=== PATIENT | female | born 1945 | race Asian ===

== ENCOUNTER 2017-06-19 11:19 | Emergency (ER) | payer OTHER ==
[~2017-06-19] VITALS: Ht 165.1 cm; Wt 81.6 kg
[2017-06-19 11:19] VITALS: BP_SYST 194
[~2017-06-19 11:19] MED LIST: INSU100C5
--- NOTE | 2017-06-19 11:19 | NUR ---
Pt BIB ALS, placed to ER bed 02, to threat monitoring analyst. Pt sat on [place] floor, then layed down. BS 52 on scene with ALOC. Glucagon 1 amp and D10 250 mL given per EMS. Upon arrival to ER, pt AAOx3, even and non-labored respirations, SPO2 98. Pt ambulatory to restroom with steady gait. NAD.
[2017-06-19] MEDS ORDERED: ASPIRIN 325 MG TABLET PO ONE (11:30)
[2017-06-19 11:42] LABS: BASOPHILS # (AUTO) 0.1 K/uL (0.0-0.2); BASOPHILS % (AUTO) 0.7 % (0.0-2.0); EOSINOPHILS # (AUTO) 0.1 K/uL (0.0-0.4); EOSINOPHILS % (AUTO) 0.8 % (0.0-4.0); HEMATOCRIT 41.9 % (36-48); HEMOGLOBIN 13.9 g/dL (12.0-16.0); LYMPHOCYTES # (AUTO) 0.7 K/uL (1.0-5.5); LYMPHOCYTES % (AUTO) 6.1 % (20.5-51.5); MEAN CORPUSCULAR HEMOGLOBIN 30 pg (27-31); MEAN CORPUSCULAR HGB CONC 33 % (32-36); MEAN CORPUSCULAR VOLUME 91 fL (79.0-98.0); MONOCYTES # (AUTO) 0.3 K/uL (0.0-1.0); MONOCYTES % (AUTO) 2.7 % (1.7-9.3); NEUTROPHILS # (AUTO) 9.8 K/uL (1.8-7.7); NEUTROPHILS % (AUTO) 89.7 % (40.0-70.0); PLATELET COUNT (AUTO) 210 K/uL (130-430); RED BLOOD CELL COUNT(AUTO) 4.58 MIL/uL (4.2-6.2); WHITE BLOOD COUNT (AUTO) 10.9 K/uL (4.8-10.8)
--- NOTE | 2017-06-19 11:42 | NUR ---
Off unit to radiology
[2017-06-19 11:45] LABS: BILIRUBIN,URINE NEGATIVE (NEGATIVE); BLOOD, URINE 2+ (NEGATIVE); CLARITY/URINE CLEAR (CLEAR); COLOR,URINE YELLOW (YELLOW); GLUCOSE,URINE 1+ (NEGATIVE); KETONES,URINE NEGATIVE (NEGATIVE); LEUKOCYTE ESTERASE ,URINE TRACE (NEGATIVE); NITRITE, URINE POSITIVE (NEGATIVE); PROTEIN URINE TRACE (NEGATIVE); UROBILINOGEN,URINE 0.2 (0.2-1.0)
--- NOTE | 2017-06-19 11:50 | NUR ---
Dr. Stauffer at bedside examining patient. Recieved new orders.
[2017-06-19 11:54] LABS: ANION GAP 7 (5-15); CALCIUM 9.1 mg/dL (8.4-11.0); CHLORIDE 102 mmol/L (98-107); CREATININE 1.33 mg/dL (0.55-1.30); GLUCOSE 233 mg/dL (70-99); POTASSIUM 3.8 mmol/L (3.5-5.1); SODIUM SERUM 139 mmol/L (136-145); UREA NITROGEN, BLOOD 25 mg/dL (8-21)
[2017-06-19 11:56] LABS: BACTERIA,URINE MODERATE /HPF (None Seen); MUCUS,URINE 1+ /LPF (None Seen); RBC,URINE 0-3 /HPF (0-3)
[2017-06-19 11:57] LABS: BARBITURATE, URINE NEGATIVE (NEG <=200); BENZODIAZEPINE, URINE NEGATIVE (NEG <=150); CANNABINOID, URINE NEGATIVE (NEG <=50); COCAINE, URINE NEGATIVE (NEG <=150); METHAMPHETAMINES SCREEN,URINE NEGATIVE (NEG <=500); OPIATE, URINE NEGATIVE (NEG <=100); PHENCYCLIDINE SCREEN,URINE NEGATIVE (NEG <=25); UR TRICYCLIC ANTIDEPRESSANTS NEGATIVE (NEG <=300); URINE AMPHETAMINE NEGATIVE (NEG <=500); URINE METHADONE NEGATIVE (NEG <=200); URINE OXYCODONE SCREEN NEGATIVE (NEG <=100); URINE PROPOXYPHENE SCREEN NEGATIVE (NEG <=300)
[2017-06-19 11:58] LABS: PROTHROMBIN TIME 10.4 SECS (9.5-12.5)
--- NOTE | 2017-06-19 12:00 | NUR ---
Patient returned from radiology, tolerated well. No signs of distress, vss noted.
[2017-06-19 12:08] LABS: ALANINE AMINOTRANSFERASE 43 U/L (12-78); ASPARTATE AMINOTRANSFERASE 44 U/L (10-37); CREATINE KINASE, TOTAL 430 U/L (26-192); TOTAL BILIRUBIN 0.4 mg/dL (0.0-1.0); TOTAL PROTEIN, SERUM 8.2 g/dL (6.4-8.3)
[2017-06-19 12:11] LABS: ALCOHOL, BLOOD < 3 mg/dL (<10)
[2017-06-19] MEDS ORDERED: NPH,100V SUBCUT (12:16)
[2017-06-19] MEDS ORDERED: ATOR20TA64 PO (12:16)
[2017-06-19] MEDS ORDERED: LISI-600 PO (12:16)
[2017-06-19] MEDS ORDERED: REPA1TAB3 PO (12:16)
[2017-06-19] MEDS ORDERED: GLIM4TAB PO (12:16)
[2017-06-19 12:17] LABS: ACETAMINOPHEN < 1 ug/mL (1-30); SALICYLATE 1 mg/dL (3-30)
[2017-06-19 12:18] LABS: CKMB RELATIVE INDEX 1.3 (0.0-2.9); CREATINE KINASE MB 5.5 ng/mL (0-3.6)
--- NOTE | 2017-06-19 13:10 | NUR ---
Patient sitting upright in bed, eating diabetic meal. Daughter at bedside.
[2017-06-19] MEDS ORDERED: cefTRIAXone 1 GM in D5W 50 ML IV ONE (15:00)
[2017-06-19 15:10] VITALS: BP_SYST 152
--- NOTE | 2017-06-19 15:10 | NUR ---
Patient given written and verbal discharge instructions and verbalizes understanding. ER MD discussed with patient the results and treatment provided. Patient in stable condition. ID arm band removed. IV catheter removed intact and dressing applied, no active bleeding. Rx of Keflex given. Patient educated on pain management and to follow up with PMD. Pain Scale 0/10. Opportunity for questions provided and answered.
--- NOTE | 2017-06-21 16:03 | NUR ---
Final C & S report was reviewed by Dr. Almanza, new Rx of Cipro 500mg PO BID x 5 days was called into [facility] on [address] as requested by Daughter Megan. Daughter also verbalized that she had not started the previously prescribed antiobiotics, I counseled her on the need to start the antibiotics today that the patient would not deteriorate.
== END 2017-06-19 15:10 | disposition home or self-care (01) ==
LOC: SED 11:19
DX: E11.649 Type 2 diabetes mellitus with hypoglycemia without coma (principal); R40.4 Transient alteration of awareness; I10 Essential (primary) hypertension; N39.0 Urinary tract infection, site not specified; Z79.4 Long term (current) use of insulin
CPT/HCPCS: 36415; 70450; 71010; 80053; 80307; 81000; 82550; 82553; 82962; 84484; 85025; 85610; 85730; 87086; 93005; 99285; G0480; G0481; G0482; 87186-TC

== ENCOUNTER 2017-12-26 04:39 | Emergency (ER) | payer OTHER ==
[~2017-12-26] VITALS: Ht 165.1 cm; Wt 81.6 kg
[2017-12-26 04:39] VITALS: BP_SYST 209
[~2017-12-26 04:39] MED LIST changes: +ATOR20TA64 PO; +GLIM4TAB PO; -INSU100C5; +LISI-600 PO; +NPH,100V SUBCUT; +REPA1TAB3 PO
--- NOTE | 2017-12-26 04:45 | NUR ---
Patient to ER bed 1 to gown for evaluation. Side rails up. Report given to Flakito DE LEON.
--- NOTE | 2017-12-26 04:46 | NUR ---
Pt brought in by ambulance with a complaint of Low blood sugar of 33, was found in bed unresponsive by son. Also stated that she hasnt been eating very well recently. Has history of DM. No acute distress at this time. Will continue to monitor Pt.
--- NOTE | 2017-12-26 04:50 | NUR ---
Given sandwich and orange juice. Pt upright and eating food.
--- NOTE | 2017-12-26 05:01 | NUR ---
ED MD Arellano at bedside for medical evaluation.
--- NOTE | 2017-12-26 05:40 | NUR ---
Medication reconciliation completed with information provided by family. Any prior medication reconciliation on file was reviewed and corrected.
[2017-12-26 05:43] LABS: BASOPHILS # (AUTO) 0.1 K/uL (0.0-0.2); BASOPHILS % (AUTO) 0.7 % (0.0-2.0); EOSINOPHILS # (AUTO) 0.5 K/uL (0.0-0.4); EOSINOPHILS % (AUTO) 5.6 % (0.0-4.0); HEMATOCRIT 43.1 % (36-48); LYMPHOCYTES # (AUTO) 1.5 K/uL (1.0-5.5); MEAN CORPUSCULAR HEMOGLOBIN 30 pg (27-31); MEAN CORPUSCULAR HGB CONC 33 % (32-36); MEAN CORPUSCULAR VOLUME 91 fL (79.0-98.0); MONOCYTES # (AUTO) 0.5 K/uL (0.0-1.0); MONOCYTES % (AUTO) 5.4 % (1.7-9.3); NEUTROPHILS # (AUTO) 6.5 K/uL (1.8-7.7); NEUTROPHILS % (AUTO) 71.3 % (40.0-70.0); PLATELET COUNT (AUTO) 211 K/uL (130-430); RED BLOOD CELL COUNT(AUTO) 4.75 MIL/uL (4.2-6.2); RED CELL DISTRIBUTION WIDTH 11.5 % (9.0-15.0); WHITE BLOOD COUNT (AUTO) 9.1 K/uL (4.8-10.8)
[2017-12-26 05:49] LABS: CLARITY/URINE CLOUDY (CLEAR); COLOR,URINE YELLOW (YELLOW); PH,URINE 6.5 (5.0-8.0)
[2017-12-26 05:50] LABS: BILIRUBIN,URINE NEGATIVE (NEGATIVE); BLOOD, URINE 1+ (NEGATIVE); GLUCOSE,URINE NEGATIVE (NEGATIVE); KETONES,URINE NEGATIVE (NEGATIVE); LEUKOCYTE ESTERASE ,URINE NEGATIVE (NEGATIVE); NITRITE, URINE NEGATIVE (NEGATIVE); PROTEIN URINE 1+ (NEGATIVE); UROBILINOGEN,URINE 0.2 (0.2-1.0)
[2017-12-26 05:52] LABS: ANION GAP 4 (5-15); CALCIUM 10.2 mg/dL (8.4-11.0); CHLORIDE 108 mmol/L (98-107); CREATININE 1.22 mg/dL (0.55-1.30); GLUCOSE 80 mg/dL (70-99); POTASSIUM 3.7 mmol/L (3.5-5.1); SODIUM SERUM 140 mmol/L (136-145); UREA NITROGEN, BLOOD 31 mg/dL (8-21)
[2017-12-26 05:54] LABS: BACTERIA,URINE MANY /HPF (None Seen); MUCUS,URINE None Seen /LPF (None Seen); RBC,URINE 0-3 /HPF (0-3)
[2017-12-26 05:57] LABS: ALANINE AMINOTRANSFERASE 44 U/L (12-78); ALBUMIN 4.2 g/dL (3.4-4.8); ASPARTATE AMINOTRANSFERASE 43 U/L (10-37); TOTAL BILIRUBIN 0.3 mg/dL (0.0-1.0)
[2017-12-26] MEDS ORDERED: NACL 0.9% 1,000 ML IV ONE (06:15)
[2017-12-26] MEDS ORDERED: NITROFURANTOIN MONOHYD/M-CRYST 100 MG CAPSULE PO ONE (06:45)
--- NOTE | 2017-12-26 07:22 | NUR ---
Pt resting comfortably in hospital bed. No acute distress. Will continue to monitor.
[2017-12-26 08:06] VITALS: BP_SYST 132
--- NOTE | 2017-12-26 08:06 | NUR ---
Patient given written and verbal discharge instructions and verbalizes understanding. ER MD discussed with patient the results and treatment provided. Patient in stable condition. ID arm band removed. IV catheter removed intact and dressing applied, no active bleeding. Rx of Macrobid given. Patient educated on pain management and to follow up with PMD. Pain Scale 0. Opportunity for questions provided and answered.
== END 2017-12-26 08:06 | disposition home or self-care (01) ==
LOC: SED 04:39
DX: T38.3X1A Poisoning by insulin and oral hypoglycemic [antidiabetic] drugs, accidental (unintentional), initial encounter (principal); E09.649 Drug or chemical induced diabetes mellitus with hypoglycemia without coma; R41.82 Altered mental status, unspecified; N39.0 Urinary tract infection, site not specified; E86.0 Dehydration; I10 Essential (primary) hypertension; Z79.4 Long term (current) use of insulin; Y92.89 Other specified places as the place of occurrence of the external cause
CPT/HCPCS: 36415; 80053; 81000; 82962; 85025; 87086; 87186; 93005; 96360; 99285; J7030

== ENCOUNTER 2018-08-03 19:10 | Inpatient (IN) | payer OTHER ==
[~2018-08-03] VITALS: Ht 157.5 cm; Wt 72.6 kg
[2018-08-03 19:10] VITALS: BP_SYST 90
[~2018-08-03 19:10] MED LIST changes: -ATOR20TA64 PO; +cefTRIAXone 1 GM in D5W 50 ML IV SCH
[2018-08-03] MEDS ORDERED: NACL 0.9% 1,000 ML IV ONE ×4 (19:30→22:00)
[2018-08-03 20:02] LABS: BILIRUBIN,URINE NEGATIVE (NEGATIVE); BLOOD, URINE 1+ (NEGATIVE); CLARITY/URINE CLOUDY (CLEAR); COLOR,URINE YELLOW (YELLOW); GLUCOSE,URINE 3+ (NEGATIVE); KETONES,URINE 1+ (NEGATIVE); LEUKOCYTE ESTERASE ,URINE 1+ (NEGATIVE); NITRITE, URINE NEGATIVE (NEGATIVE); PH,URINE 5.5 (5.0-8.0); PROTEIN URINE TRACE (NEGATIVE); UROBILINOGEN,URINE 0.2 (0.2-1.0)
[2018-08-03] MEDS ORDERED: INSULIN REGULAR, HUMAN 10 UNITS/0.1 ML INJ IVP ONE (20:15)
[2018-08-03 20:29] LABS: BACTERIA,URINE MODERATE /HPF (None Seen); MUCUS,URINE 1+ /LPF (None Seen); RBC,URINE 20-50 /HPF (0-3); WBC,URINE 50-80 /HPF (0-3); YEAST,URINE Few /HPF (None Seen)
[2018-08-03 20:56] LABS: HEMATOCRIT 34.2 % (36-48); HEMOGLOBIN 10.5 g/dL (12.0-16.0); MEAN CORPUSCULAR HEMOGLOBIN 31 pg (27-31); MEAN CORPUSCULAR VOLUME 101 fL (79.0-98.0); RED BLOOD CELL COUNT(AUTO) 3.38 MIL/uL (4.2-6.2); WHITE BLOOD COUNT (AUTO) 11.4 K/uL (4.8-10.8)
[2018-08-03 20:57] LABS: MEAN CORPUSCULAR HGB CONC 31 % (32-36); PLATELET COUNT (AUTO) 220 K/uL (130-430); RED CELL DISTRIBUTION WIDTH 14.7 % (9.0-15.0)
[2018-08-03 21:15] LABS: BASOPHILS % (AUTO) 0.4 % (0.0-2.0); EOSINOPHILS % (AUTO) 0.3 % (0.0-4.0); LYMPHOCYTES % (AUTO) 5.1 % (20.5-51.5); MONOCYTES % (AUTO) 5.7 % (1.7-9.3); NEUTROPHILS # (AUTO) 10.1 K/uL (1.8-7.7); NEUTROPHILS % (AUTO) 88.5 % (40.0-70.0)
[2018-08-03] MEDS ORDERED: cefTRIAXone 1 GM IVPB PREMIX 50 ML IV ONE (21:15)
[2018-08-03 21:16] LABS: LYMPHOCYTES # (AUTO) 0.6 K/uL (1.0-5.5); MONOCYTES # (AUTO) 0.7 K/uL (0.0-1.0)
[2018-08-03] MEDS ORDERED: GLIM4TAB PO (21:23)
[2018-08-03] MEDS ORDERED: LIP20 PO (21:23)
[2018-08-03 21:32] LABS: ANION GAP 30 (5-15); CALCIUM 8.8 mg/dL (8.4-11.0); CHLORIDE 97 mmol/L (98-107); CREATININE 3.73 mg/dL (0.55-1.30); SODIUM SERUM 133 mmol/L (136-145); UREA NITROGEN, BLOOD 63 mg/dL (8-21)
[2018-08-03 21:35] LABS: ALANINE AMINOTRANSFERASE 32 U/L (12-78); ALBUMIN 3.3 g/dL (3.4-4.8); ASPARTATE AMINOTRANSFERASE 30 U/L (10-37); TOTAL BILIRUBIN 0.7 mg/dL (0.0-1.0)
[2018-08-03] MEDS: NACL 0.9% 1,000 ML IV SCH (22:00)
[2018-08-03] MEDS ORDERED: INSULIN REGULAR, HUMAN 100 UNITS in NS 99 ML IV ONE ×2 (22:00)
[2018-08-03 22:19] LABS: GLUCOSE 1212 mg/dL (70-99)
[2018-08-03 22:20] LABS: POTASSIUM 6.8 mmol/L (3.5-5.1)
[2018-08-03 22:50] VITALS: BP_SYST 100
[2018-08-03 23:12] LABS: ANION GAP 29 (5-15); CHLORIDE 103 mmol/L (98-107); CREATININE 3.81 mg/dL (0.55-1.30); POTASSIUM 5.5 mmol/L (3.5-5.1); SODIUM SERUM 138 mmol/L (136-145); UREA NITROGEN, BLOOD 63 mg/dL (8-21)
[2018-08-03 23:15] LABS: GLUCOSE 999 mg/dL (70-99)
[2018-08-03] MEDS ORDERED: ACETAMINOPHEN 325 MG TABLET PO PRN ×2 (23:15)
[2018-08-03] MEDS ORDERED: INSULIN REGULAR, HUMAN 100 UNITS in NS 99 ML IV PRN ×2 (23:15)
[2018-08-03] MEDS ORDERED: ACETAMINOPHEN 650 MG SUPP.RECT RC PRN (23:15)
[2018-08-03] MEDS ORDERED: LEVOFLOXACIN 500 MG/D5W 100 ML IV ONE ×2 (23:15→23:55)
[2018-08-03] MEDS ORDERED: ENOXAPARIN SODIUM 30 MG/0.3 ML SYRINGE SUBCUT ONE (23:45)
[2018-08-03 23:52] LABS: PROTHROMBIN TIME 9.9 SECS (9.5-12.5)
[2018-08-04] VITALS (17 sets, daily range): BP systolic 106–158
[2018-08-04] MEDS ORDERED: SODIUM BICARBONATE 8.4% JECT 50 MEQ/50 ML SYRINGE ONE (00:23)
[2018-08-04] MEDS ORDERED: SODIUM BICARBONATE 8.4% JECT 50 MEQ/50 ML SYRINGE IVP ONE ×2 (00:30→00:45)
[2018-08-04] MEDS: NACL 0.9% 1,000 ML IV SCH ×5 (00:35→09:03)
[2018-08-04] MEDS ORDERED: INSULIN REGULAR, HUMAN 100 UNITS in NS 99 ML IV PRN ×4 (03:00→08:00)
[2018-08-04 06:40] LABS: HEMATOCRIT 32.1 % (36-48); HEMOGLOBIN 10.7 g/dL (12.0-16.0); LYMPHOCYTES # (AUTO) 1.1 K/uL (1.0-5.5); LYMPHOCYTES % (AUTO) 9.6 % (20.5-51.5); MEAN CORPUSCULAR HEMOGLOBIN 30 pg (27-31); MEAN CORPUSCULAR HGB CONC 33 % (32-36); MONOCYTES # (AUTO) 0.7 K/uL (0.0-1.0); MONOCYTES % (AUTO) 6.1 % (1.7-9.3); NEUTROPHILS # (AUTO) 9.9 K/uL (1.8-7.7); NEUTROPHILS % (AUTO) 84.3 % (40.0-70.0); PLATELET COUNT (AUTO) 198 K/uL (130-430); PROTHROMBIN TIME 10.4 SECS (9.5-12.5); RED BLOOD CELL COUNT(AUTO) 3.52 MIL/uL (4.2-6.2); RED CELL DISTRIBUTION WIDTH 12.6 % (9.0-15.0); WHITE BLOOD COUNT (AUTO) 11.7 K/uL (4.8-10.8)
[2018-08-04 06:50] LABS: MEAN CORPUSCULAR VOLUME 91 fL (79.0-98.0)
[2018-08-04 06:59] LABS: ANION GAP 12 (5-15); CALCIUM 7.7 mg/dL (8.4-11.0); CHLORIDE 116 mmol/L (98-107); CREATININE 2.79 mg/dL (0.55-1.30); POTASSIUM 3.4 mmol/L (3.5-5.1); SODIUM SERUM 151 mmol/L (136-145); UREA NITROGEN, BLOOD 55 mg/dL (8-21)
[2018-08-04 07:00] LABS: GLUCOSE 520 mg/dL (70-99)
[2018-08-04 07:08] LABS: ALANINE AMINOTRANSFERASE 35 U/L (12-78); ALBUMIN 2.2 g/dL (3.4-4.8); ASPARTATE AMINOTRANSFERASE 44 U/L (10-37); PHOSPHORUS 2.7 mg/dL (2.7-4.5); TOTAL BILIRUBIN 0.3 mg/dL (0.0-1.0)
[2018-08-04 07:09] LABS: FREE T4 (FREE THYROXINE) 1.3 ng/dL (0.6-1.6); LIPASE 71 U/L (73-393); THYROID STIMULATING HORMONE 0.37 uIu/mL (0.34-4.82)
[2018-08-04 07:33] LABS: AMYLASE 1603 U/L (0-100)
[2018-08-04] MEDS ORDERED: 0.45% NACL 1,000 ML IV SCH ×2 (08:00→21:45)
[2018-08-04] MEDS ORDERED: KCL 20 mEq in 0.45% NS 1000 mL 1,000 ML IV SCH (08:00)
[2018-08-04] MEDS ORDERED: POTASSIUM CHLORIDE 40 MEQ in 0.45% NS 250 ML IV SCH (08:00)
[2018-08-04] MEDS ORDERED: 0.45% NACL 1,000 ML IV ONE (08:36)
[2018-08-04] MEDS: ATORVASTATIN 20 MG TABLET PO SCH (08:56)
[2018-08-04 12:58] LABS: TOTAL IRON BIND. CAPACITY 224 ug/dL (250-450)
[2018-08-04] MEDS ORDERED: PANTOPRAZOLE SODIUM 40 MG/VIAL (PROTONIX) IVP ONE (13:00)
[2018-08-04 14:05] LABS: ANION GAP 9 (5-15); CALCIUM 7.8 mg/dL (8.4-11.0); CHLORIDE 117 mmol/L (98-107); CREATININE 2.05 mg/dL (0.55-1.30); GLUCOSE 207 mg/dL (70-99); POTASSIUM 4.1 mmol/L (3.5-5.1); SODIUM SERUM 150 mmol/L (136-145); UREA NITROGEN, BLOOD 42 mg/dL (8-21)
[2018-08-04 14:08] LABS: PHOSPHORUS 2.9 mg/dL (2.7-4.5)
[2018-08-04] MEDS ORDERED: NEPHROVITE, (FOLIC ACID/VITAMIN B COMP W-C 1 TAB) PO ONE (14:15)
[2018-08-04] MEDS: KCL 20 mEq in 0.45% NS 1000 mL 1,000 ML IV SCH ×3 (14:19→19:40)
[2018-08-04] MEDS: SOD FERRIC GLUC COMPLEX/SUC 125 MG in NS 100 ML IV SCH (14:58)
[2018-08-04] MEDS: PANTOPRAZOLE SODIUM 40 MG/VIAL (PROTONIX) IVP SCH (20:40)
[2018-08-04] MEDS: cefTRIAXone 1 GM in D5W 50 ML IV SCH (20:41)
[2018-08-04] MEDS ORDERED: ENOXAPARIN SODIUM 30 MG/0.3 ML SYRINGE SUBCUT SCH (21:00)
[2018-08-04 21:03] LABS: ANION GAP 9 (5-15); CALCIUM 7.8 mg/dL (8.4-11.0); CHLORIDE 115 mmol/L (98-107); CREATININE 1.98 mg/dL (0.55-1.30); GLUCOSE 192 mg/dL (70-99); SODIUM SERUM 147 mmol/L (136-145); UREA NITROGEN, BLOOD 38 mg/dL (8-21)
[2018-08-04] MEDS ORDERED: INSULIN ASPART 100 UNITS/ML, 10 ML VIAL SUBCUT SCH (22:00)
[2018-08-05] VITALS (15 sets, daily range): BP systolic 138–174
[2018-08-05] MEDS: KCL 20 mEq in 0.45% NS 1000 mL 1,000 ML IV SCH (03:35)
[2018-08-05 06:25] LABS: BASOPHILS % (AUTO) 0.2 % (0.0-2.0); EOSINOPHILS % (AUTO) 0.3 % (0.0-4.0); HEMATOCRIT 29.9 % (36-48); HEMOGLOBIN 10.1 g/dL (12.0-16.0); LYMPHOCYTES # (AUTO) 1.2 K/uL (1.0-5.5); LYMPHOCYTES % (AUTO) 12.1 % (20.5-51.5); MEAN CORPUSCULAR HEMOGLOBIN 31 pg (27-31); MEAN CORPUSCULAR HGB CONC 34 % (32-36); MEAN CORPUSCULAR VOLUME 92 fL (79.0-98.0); MONOCYTES # (AUTO) 0.5 K/uL (0.0-1.0); NEUTROPHILS # (AUTO) 8.4 K/uL (1.8-7.7); NEUTROPHILS % (AUTO) 82.4 % (40.0-70.0); PLATELET COUNT (AUTO) 136 K/uL (130-430); RED BLOOD CELL COUNT(AUTO) 3.26 MIL/uL (4.2-6.2); RED CELL DISTRIBUTION WIDTH 12.8 % (9.0-15.0); WHITE BLOOD COUNT (AUTO) 10.1 K/uL (4.8-10.8)
[2018-08-05 06:50] LABS: ANION GAP 6 (5-15); CALCIUM 7.2 mg/dL (8.4-11.0); CHLORIDE 115 mmol/L (98-107); CREATININE 1.44 mg/dL (0.55-1.30); GLUCOSE 146 mg/dL (70-99); POTASSIUM 5.4 mmol/L (3.5-5.1); SODIUM SERUM 143 mmol/L (136-145); UREA NITROGEN, BLOOD 28 mg/dL (8-21)
[2018-08-05 07:41] LABS: CHOLESTEROL 124 mg/dL (<200); HDL CHOLESTEROL 43 mg/dL (>55); LDL CHOLESTEROL 67 mg/dL (<100); TRIGLYCERIDES 113 mg/dL (30-150)
[2018-08-05] MEDS: INSULIN ASPART 100 UNITS/ML, 10 ML VIAL (NovoLOG) SUBCUT PRN ×3 (08:09→20:49)
[2018-08-05] MEDS: NEPHROVITE, (FOLIC ACID/VITAMIN B COMP W-C 1 TAB) PO SCH (08:16)
[2018-08-05] MEDS: ATORVASTATIN 20 MG TABLET PO SCH (08:16)
[2018-08-05] MEDS: PANTOPRAZOLE SODIUM 40 MG/VIAL (PROTONIX) IVP SCH (08:17)
[2018-08-05] MEDS ORDERED: NACL 0.9% 1,000 ML IV SCH (08:30)
[2018-08-05] MEDS ORDERED: CARVEDILOL 3.125 MG TABLET (COREG) PO SCH (09:00)
[2018-08-05] MEDS: PANTOPRAZOLE SODIUM 40 MG TAB PO SCH (09:00)
[2018-08-05] MEDS: LISINOPRIL 20 MG TABLET PO SCH (09:12)
[2018-08-05] MEDS: ASPIRIN 81 MG TAB.CHEW PO SCH (09:13)
[2018-08-05 10:47] LABS: RETICULOCYTE COUNT 1.4 % (0.5-1.5)
[2018-08-05 12:19] LABS: FOLATE (FOLIC ACID) >20.0 ng/mL (>3.0)
[2018-08-05] MEDS: SOD FERRIC GLUC COMPLEX/SUC 125 MG in NS 100 ML IV SCH (14:10)
[2018-08-05] MEDS ORDERED: CHOLECALCIFEROL (VITAMIN D3) 2,000 UNIT TABLET PO SCH (15:15)
[2018-08-05] MEDS ORDERED: BISACODYL 5 MG TABLET.DR (DULCOLAX) PO SCH (15:15)
[2018-08-05] MEDS: 0.45% NACL 1,000 ML IV SCH (15:20)
[2018-08-05] MEDS ORDERED: DOCUSATE SODIUM 250 MG CAPSULE PO SCH (15:30)
[2018-08-05] MEDS ORDERED: MULTIVITS,CA,MINERALS/IRON/FA 1 TABLET PO SCH (15:30)
[2018-08-05] MEDS: hydrALAZINE HCL 20 MG/ML VIAL IVP PRN (15:35)
[2018-08-05] MEDS: BISACODYL 5 MG TABLET.DR (DULCOLAX) PO PRN (15:36)
[2018-08-05] MEDS: cefTRIAXone 1 GM in D5W 50 ML IV SCH (20:44)
[2018-08-05] MEDS: CARVEDILOL 3.125 MG TABLET (COREG) PO SCH (20:56)
[2018-08-05] MEDS ORDERED: ENOXAPARIN SODIUM 80 MG/0.8 ML SYRINGE SUBCUT SCH (21:00)
[2018-08-06 00:18] VITALS: BP_SYST 160
[2018-08-06] MEDS: 0.45% NACL 1,000 ML IV SCH ×2 (01:36→13:54)
[2018-08-06] MEDS: INSULIN ASPART 100 UNITS/ML, 10 ML VIAL (NovoLOG) SUBCUT PRN ×3 (06:33→16:57)
[2018-08-06 06:44] LABS: ANION GAP 8 (5-15); CALCIUM 8.3 mg/dL (8.4-11.0); CHLORIDE 110 mmol/L (98-107); CREATININE 1.15 mg/dL (0.55-1.30); GLUCOSE 329 mg/dL (70-99); POTASSIUM 4.2 mmol/L (3.5-5.1); SODIUM SERUM 144 mmol/L (136-145); UREA NITROGEN, BLOOD 20 mg/dL (8-21)
[2018-08-06 06:46] LABS: BASOPHILS % (AUTO) 0.2 % (0.0-2.0); EOSINOPHILS # (AUTO) 0.2 K/uL (0.0-0.4); EOSINOPHILS % (AUTO) 3.1 % (0.0-4.0); HEMATOCRIT 34.7 % (36-48); HEMOGLOBIN 11.9 g/dL (12.0-16.0); LYMPHOCYTES # (AUTO) 0.9 K/uL (1.0-5.5); LYMPHOCYTES % (AUTO) 14.7 % (20.5-51.5); MEAN CORPUSCULAR HEMOGLOBIN 32 pg (27-31); MEAN CORPUSCULAR HGB CONC 34 % (32-36); MEAN CORPUSCULAR VOLUME 93 fL (79.0-98.0); MONOCYTES # (AUTO) 0.4 K/uL (0.0-1.0); MONOCYTES % (AUTO) 6.5 % (1.7-9.3); NEUTROPHILS # (AUTO) 4.8 K/uL (1.8-7.7); NEUTROPHILS % (AUTO) 75.5 % (40.0-70.0); PLATELET COUNT (AUTO) 133 K/uL (130-430); RED BLOOD CELL COUNT(AUTO) 3.74 MIL/uL (4.2-6.2); RED CELL DISTRIBUTION WIDTH 12.4 % (9.0-15.0); WHITE BLOOD COUNT (AUTO) 6.4 K/uL (4.8-10.8)
[2018-08-06 06:53] LABS: ALANINE AMINOTRANSFERASE 53 U/L (12-78); ALBUMIN 2.8 g/dL (3.4-4.8); ASPARTATE AMINOTRANSFERASE 86 U/L (10-37); TOTAL BILIRUBIN 0.7 mg/dL (0.0-1.0)
[2018-08-06 08:00] VITALS: BP_SYST 164
[2018-08-06] MEDS: LISINOPRIL 20 MG TABLET PO SCH (09:33)
[2018-08-06] MEDS: CARVEDILOL 3.125 MG TABLET (COREG) PO SCH ×2 (09:33→21:30)
[2018-08-06] MEDS: ASPIRIN 81 MG TAB.CHEW PO SCH (09:33)
[2018-08-06] MEDS: PANTOPRAZOLE SODIUM 40 MG TAB PO SCH (09:34)
[2018-08-06] MEDS: amLODIPine BESYLATE 5 MG TABLET PO SCH (09:34)
[2018-08-06] MEDS: CHOLECALCIFEROL (VITAMIN D3) 2,000 UNIT TABLET PO SCH (09:34)
[2018-08-06] MEDS: MULTIVITS,CA,MINERALS/IRON/FA 1 TABLET PO SCH (09:34)
[2018-08-06] MEDS: ATORVASTATIN 20 MG TABLET PO SCH (09:34)
[2018-08-06] MEDS: NEPHROVITE, (FOLIC ACID/VITAMIN B COMP W-C 1 TAB) PO SCH (09:34)
[2018-08-06] MEDS: DOCUSATE SODIUM 250 MG CAPSULE PO SCH ×2 (09:35→21:29)
[2018-08-06 12:10] VITALS: BP_SYST 153
[2018-08-06] MEDS: INSULIN ASPART 100 UNITS/ML, 10 ML VIAL SUBCUT SCH ×2 (14:00→16:56)
[2018-08-06] MEDS: SOD FERRIC GLUC COMPLEX/SUC 125 MG in NS 100 ML IV SCH (14:02)
[2018-08-06 16:00] VITALS: BP_SYST 164
[2018-08-06 20:07] VITALS: BP_SYST 153
[2018-08-06] MEDS: cefTRIAXone 1 GM in D5W 50 ML IV SCH (21:29)
[2018-08-06] MEDS: ENOXAPARIN SODIUM 40 MG/0.4 ML SYRINGE SUBCUT SCH (21:32)
[2018-08-07 01:11] VITALS: BP_SYST 179
[2018-08-07] MEDS: hydrALAZINE HCL 20 MG/ML VIAL IVP PRN (04:29)
[2018-08-07 07:33] LABS: BASOPHILS % (AUTO) 0.5 % (0.0-2.0); EOSINOPHILS # (AUTO) 0.2 K/uL (0.0-0.4); EOSINOPHILS % (AUTO) 3.7 % (0.0-4.0); HEMATOCRIT 42.1 % (36-48); HEMOGLOBIN 13.6 g/dL (12.0-16.0); LYMPHOCYTES # (AUTO) 0.8 K/uL (1.0-5.5); LYMPHOCYTES % (AUTO) 12.7 % (20.5-51.5); MEAN CORPUSCULAR HEMOGLOBIN 30 pg (27-31); MEAN CORPUSCULAR HGB CONC 32 % (32-36); MEAN CORPUSCULAR VOLUME 93 fL (79.0-98.0); MONOCYTES # (AUTO) 0.4 K/uL (0.0-1.0); NEUTROPHILS # (AUTO) 4.9 K/uL (1.8-7.7); NEUTROPHILS % (AUTO) 77.1 % (40.0-70.0); PLATELET COUNT (AUTO) 148 K/uL (130-430); RED BLOOD CELL COUNT(AUTO) 4.53 MIL/uL (4.2-6.2); RED CELL DISTRIBUTION WIDTH 12.6 % (9.0-15.0); WHITE BLOOD COUNT (AUTO) 6.3 K/uL (4.8-10.8)
[2018-08-07 07:34] LABS: ANION GAP 7 (5-15); CHLORIDE 106 mmol/L (98-107); CREATININE 0.96 mg/dL (0.55-1.30); GLUCOSE 227 mg/dL (70-99); POTASSIUM 4.2 mmol/L (3.5-5.1); SODIUM SERUM 143 mmol/L (136-145); UREA NITROGEN, BLOOD 14 mg/dL (8-21)
[2018-08-07] MEDS: INSULIN ASPART 100 UNITS/ML, 10 ML VIAL SUBCUT SCH ×3 (07:41→17:33)
[2018-08-07] MEDS: INSULIN ASPART 100 UNITS/ML, 10 ML VIAL (NovoLOG) SUBCUT PRN ×4 (07:43→22:17)
[2018-08-07 08:30] VITALS: BP_SYST 156
[2018-08-07] MEDS: CHOLECALCIFEROL (VITAMIN D3) 2,000 UNIT TABLET PO SCH (08:37)
[2018-08-07] MEDS: DOCUSATE SODIUM 250 MG CAPSULE PO SCH ×2 (08:37→22:03)
[2018-08-07] MEDS: NEPHROVITE, (FOLIC ACID/VITAMIN B COMP W-C 1 TAB) PO SCH (08:37)
[2018-08-07] MEDS: ATORVASTATIN 20 MG TABLET PO SCH (08:37)
[2018-08-07] MEDS: PANTOPRAZOLE SODIUM 40 MG TAB PO SCH (08:37)
[2018-08-07] MEDS: amLODIPine BESYLATE 5 MG TABLET PO SCH (08:38)
[2018-08-07] MEDS: MULTIVITS,CA,MINERALS/IRON/FA 1 TABLET PO SCH (08:38)
[2018-08-07] MEDS: LISINOPRIL 20 MG TABLET PO SCH (08:38)
[2018-08-07] MEDS: BISACODYL 5 MG TABLET.DR (DULCOLAX) PO PRN (08:38)
[2018-08-07] MEDS: CARVEDILOL 3.125 MG TABLET (COREG) PO SCH ×2 (08:39→22:06)
[2018-08-07] MEDS: ASPIRIN 81 MG TAB.CHEW PO SCH (08:39)
[2018-08-07 11:56] VITALS: BP_SYST 129
[2018-08-07] MEDS: SOD FERRIC GLUC COMPLEX/SUC 125 MG in NS 100 ML IV SCH (14:40)
[2018-08-07 15:00] VITALS: BP_SYST 134
[2018-08-07 20:10] VITALS: BP_SYST 126
[2018-08-07] MEDS: cefTRIAXone 1 GM in D5W 50 ML IV SCH (22:03)
[2018-08-07] MEDS: ENOXAPARIN SODIUM 40 MG/0.4 ML SYRINGE SUBCUT SCH (22:07)
[2018-08-07 23:50] VITALS: BP_SYST 126
[2018-08-08] MEDS: INSULIN ASPART 100 UNITS/ML, 10 ML VIAL SUBCUT SCH ×2 (07:00→11:56)
[2018-08-08 08:00] VITALS: BP_SYST 138
[2018-08-08] MEDS: CARVEDILOL 3.125 MG TABLET (COREG) PO SCH (09:56)
[2018-08-08] MEDS: DOCUSATE SODIUM 250 MG CAPSULE PO SCH (09:57)
[2018-08-08] MEDS: NEPHROVITE, (FOLIC ACID/VITAMIN B COMP W-C 1 TAB) PO SCH (09:57)
[2018-08-08] MEDS: CHOLECALCIFEROL (VITAMIN D3) 2,000 UNIT TABLET PO SCH (09:58)
[2018-08-08] MEDS: amLODIPine BESYLATE 5 MG TABLET PO SCH (09:58)
[2018-08-08] MEDS: PANTOPRAZOLE SODIUM 40 MG TAB PO SCH (09:58)
[2018-08-08] MEDS: ASPIRIN 81 MG TAB.CHEW PO SCH (09:58)
[2018-08-08] MEDS: ATORVASTATIN 20 MG TABLET PO SCH (09:58)
[2018-08-08] MEDS: LISINOPRIL 20 MG TABLET PO SCH (09:58)
[2018-08-08] MEDS: MULTIVITS,CA,MINERALS/IRON/FA 1 TABLET PO SCH (09:58)
[2018-08-08 11:24] VITALS: BP_SYST 120
[2018-08-08] MEDS: INSULIN ASPART 100 UNITS/ML, 10 ML VIAL (NovoLOG) SUBCUT PRN (11:59)
[2018-08-08] MEDS ORDERED: COR3.125 PO (12:08)
[2018-08-08] MEDS ORDERED: VITD2000 PO (12:08)
[2018-08-08] MEDS ORDERED: SSNOVOLOG SUBCUT (12:08)
[2018-08-08] MEDS ORDERED: PRO40 PO ×2 (12:08→13:25)
[2018-08-08] MEDS ORDERED: MULT-33 PO (12:08)
[2018-08-08] MEDS ORDERED: ASA81 PO (12:08)
[2018-08-08 13:16] VITALS: BP_SYST 120
[2018-08-08] MEDS ORDERED: CEPH250C PO (13:23)
[2018-08-08] MEDS ORDERED: L.RH1CAP PO (13:25)
== END 2018-08-08 14:10 | disposition home health service (06) | DRG 871 ==
LOC: SED 19:10 → SIC 21:59 → STU 08-05 10:23
PROVIDERS: ADMIT Internal Medicine; ATTEND Internal Medicine
PROC: 02HV33Z Insertion of Infusion Device into Superior Vena Cava, Percutaneous Approach (ICD-10-PCS; principal; 2018-08-04)
PROC: B548ZZA Ultrasonography of Superior Vena Cava, Guidance (ICD-10-PCS; 2018-08-04)
DX: A41.9 Sepsis, unspecified organism (principal); E11.00 Type 2 diabetes mellitus with hyperosmolarity without nonketotic hyperglycemic-hyperosmolar coma (NKHHC); G93.41 Metabolic encephalopathy; I21.4 Non-ST elevation (NSTEMI) myocardial infarction; N17.0 Acute kidney failure with tubular necrosis; I63.9 Cerebral infarction, unspecified; R65.21 Severe sepsis with septic shock; E11.10 Type 2 diabetes mellitus with ketoacidosis without coma; N39.0 Urinary tract infection, site not specified; K92.2 Gastrointestinal hemorrhage, unspecified; E78.5 Hyperlipidemia, unspecified; I10 Essential (primary) hypertension; E86.0 Dehydration; E86.1 Hypovolemia; E11.649 Type 2 diabetes mellitus with hypoglycemia without coma; E87.5 Hyperkalemia; D50.9 Iron deficiency anemia, unspecified; I25.10 Atherosclerotic heart disease of native coronary artery without angina pectoris; B96.20 Unspecified Escherichia coli [E. coli] as the cause of diseases classified elsewhere; E11.21 Type 2 diabetes mellitus with diabetic nephropathy; E11.42 Type 2 diabetes mellitus with diabetic polyneuropathy; Z79.4 Long term (current) use of insulin; Z83.3 Family history of diabetes mellitus; Z87.440 Personal history of urinary (tract) infections; Z79.84 Long term (current) use of oral hypoglycemic drugs; Z79.899 Other long term (current) drug therapy
CPT/HCPCS: 36415; 36600; 70450-TC; 70551; 71045; 80048; 80053; 80061; 81000-TC; 82009-TC; 82140-TC; 82150-TC; 82272; 82607; 82746; 82803-TC; 82947-TC; 82962; 83036; 83540-TC; 83550-TC; 83605; 83690-TC; 83735-TC; 83880; 83930-TC; 84100-TC; 84439; 84443-TC; 84484; 85025; 85044-TC; 85610-TC; 85730-TC; 87040-TC; 87081; 87086; 87186-TC; 93005; 93306; 93880; 96361; 96365; 96375; 99291; 99292; C1751; C9113; J0360; J0696; J1650; J1815; J1956; J2916; J3480; J7030; J7060

== ENCOUNTER 2021-02-13 09:24 | Emergency (ER) | payer OTHER ==
[~2021-02-13] VITALS: Ht 144.8 cm; Wt 40.8 kg
[~2021-02-13 09:24] MED LIST changes: +ASA81 PO; +CEPH250C PO; +COR3.125 PO; -GLIM4TAB PO; +L.RH1CAP PO; +LIP20 PO; -LISI-600 PO; +LISI20TA30 PO; +MULT-33 PO; -NPH,100V SUBCUT; +PRO40 PO; -REPA1TAB3 PO; +SSNOVOLOG SUBCUT; +VITD2000 PO; -cefTRIAXone 1 GM in D5W 50 ML IV SCH
[2021-02-13 09:40] VITALS: BP_SYST 174
[2021-02-13] MEDS ORDERED: INSULIN REGULAR, HUMAN 10 UNITS/0.1 ML INJ IVP ONE (10:00)
[2021-02-13 10:44] LABS: ACETONE, SERUM NEGATIVE (NEGATIVE)
[2021-02-13 10:48] LABS: CALCIUM 9.8 mg/dL (8.4-11.0); UREA NITROGEN, BLOOD 59 mg/dL (8-21)
[2021-02-13 10:49] LABS: BASOPHILS % (AUTO) 0.1 % (0.0-2.0); HEMATOCRIT 46.7 % (36-48); HEMOGLOBIN 15.1 g/dL (12.0-16.0); LYMPHOCYTES # (AUTO) 0.8 K/uL (1.0-5.5); LYMPHOCYTES % (AUTO) 5.9 % (20.5-51.5); MEAN CORPUSCULAR HEMOGLOBIN 30 pg (27-31); MEAN CORPUSCULAR HGB CONC 32 % (32-36); MEAN CORPUSCULAR VOLUME 92 fL (79.0-98.0); MONOCYTES # (AUTO) 0.4 K/uL (0.0-1.0); MONOCYTES % (AUTO) 3.1 % (1.7-9.3); NEUTROPHILS # (AUTO) 12.3 K/uL (1.8-7.7); NEUTROPHILS % (AUTO) 90.9 % (40.0-70.0); PLATELET COUNT (AUTO) 257 K/uL (130-430); RED CELL DISTRIBUTION WIDTH 13.9 % (9.0-15.0); WHITE BLOOD COUNT (AUTO) 13.5 K/uL (4.8-10.8)
[2021-02-13 10:56] LABS: PROTHROMBIN TIME 10.1 SECS (9.5-12.5)
[2021-02-13 11:11] LABS: ANION GAP 9 (5-15); CHLORIDE 104 mmol/L (98-107); SODIUM SERUM 144 mmol/L (136-145)
[2021-02-13 11:12] LABS: ALANINE AMINOTRANSFERASE 32 U/L (12-78); ALBUMIN 3.8 g/dL (3.4-4.8); ASPARTATE AMINOTRANSFERASE 30 U/L (10-37); GLUCOSE 497 mg/dL (70-99); TOTAL BILIRUBIN 0.6 mg/dL (0.0-1.0)
[2021-02-13 11:23] LABS: BILIRUBIN,URINE NEGATIVE (NEGATIVE); CLARITY/URINE SL CLOUDY (CLEAR); COLOR,URINE YELLOW (YELLOW); GLUCOSE,URINE 3+ (NEGATIVE); KETONES,URINE NEGATIVE (NEGATIVE); LEUKOCYTE ESTERASE ,URINE 2+ (NEGATIVE); NITRITE, URINE NEGATIVE (NEGATIVE); PROTEIN URINE NEGATIVE (NEGATIVE); UROBILINOGEN,URINE 0.2 (0.2-1.0)
[2021-02-13 11:29] LABS: BLOOD, URINE TRACE (NEGATIVE)
[2021-02-13 11:43] LABS: BACTERIA,URINE MANY /HPF (None Seen); WBC,URINE 20-50 /HPF (0-3)
[2021-02-13] MEDS ORDERED: ASPIRIN 81 MG TAB.CHEW PO ONE (12:00)
[2021-02-13] MEDS ORDERED: cefTRIAXone 2 GM VIAL ONE (12:13)
[2021-02-13] MEDS ORDERED: ENOXAPARIN SODIUM 40 MG/0.4 ML SYRINGE SUBCUT ONE (12:45)
[2021-02-13 17:10] VITALS: BP_SYST 125
== END 2021-02-13 17:10 | disposition designated cancer center or children's hospital (05) ==
LOC: SED 09:24
DX: A41.9 Sepsis, unspecified organism (principal); N39.0 Urinary tract infection, site not specified; I48.91 Unspecified atrial fibrillation; I10 Essential (primary) hypertension; E11.65 Type 2 diabetes mellitus with hyperglycemia; Z79.899 Other long term (current) drug therapy; Z79.4 Long term (current) use of insulin; Z20.822 Contact with and (suspected) exposure to COVID-19
CPT/HCPCS: 36415; 70450; 71045; 76376; 80053; 81000; 82009; 82962; 83605; 84484; 85025; 85610; 85730; 87040; 87086; 87426; 93005; 96365; 96372; 96375; 99285; J0696; J1650; J1815

== ENCOUNTER 2021-08-30 10:01 | Emergency (ER) | payer OTHER, SELFPAY ==
[~2021-08-30] VITALS: Ht 152.4 cm; Wt 46.3 kg
[2021-08-30 10:17] VITALS: BP_SYST 103
[2021-08-30] MEDS ORDERED: NACL 0.9% 1,000 ML IV ONE ×2 (10:45→11:45)
[2021-08-30 10:59] LABS: BASOPHILS % (AUTO) 0.2 % (0.0-2.0); EOSINOPHILS % (AUTO) 0.3 % (0.0-4.0); HEMATOCRIT 39.8 % (36-48); HEMOGLOBIN 13.2 g/dL (12.0-16.0); LYMPHOCYTES # (AUTO) 1.7 K/uL (1.0-5.5); LYMPHOCYTES % (AUTO) 18.1 % (20.5-51.5); MEAN CORPUSCULAR HEMOGLOBIN 30 pg (27-31); MEAN CORPUSCULAR HGB CONC 33 % (32-36); MEAN CORPUSCULAR VOLUME 92 fL (79.0-98.0); MONOCYTES # (AUTO) 0.8 K/uL (0.0-1.0); MONOCYTES % (AUTO) 8.2 % (1.7-9.3); NEUTROPHILS # (AUTO) 6.7 K/uL (1.8-7.7); NEUTROPHILS % (AUTO) 73.2 % (40.0-70.0); PLATELET COUNT (AUTO) 310 K/uL (130-430); RED BLOOD CELL COUNT(AUTO) 4.34 MIL/uL (4.2-6.2); RED CELL DISTRIBUTION WIDTH 13.7 % (9.0-15.0); WHITE BLOOD COUNT (AUTO) 9.2 K/uL (4.8-10.8)
[2021-08-30 11:03] LABS: BILIRUBIN,URINE NEGATIVE (NEGATIVE); BLOOD, URINE 2+ (NEGATIVE); CLARITY/URINE CLOUDY (CLEAR); COLOR,URINE YELLOW (YELLOW); GLUCOSE,URINE 3+ (NEGATIVE); KETONES,URINE NEGATIVE (NEGATIVE); LEUKOCYTE ESTERASE ,URINE 2+ (NEGATIVE); NITRITE, URINE NEGATIVE (NEGATIVE); PH,URINE 5.5 (5.0-8.0); PROTEIN URINE 1+ (NEGATIVE); UROBILINOGEN,URINE 0.2 (0.2-1.0)
[2021-08-30 11:13] LABS: ANION GAP 6 (5-15); CALCIUM 9.4 mg/dL (8.4-11.0); CHLORIDE 102 mmol/L (98-107); CREATININE 1.34 mg/dL (0.55-1.30); GLUCOSE 359 mg/dL (70-99); POTASSIUM 4.3 mmol/L (3.5-5.1); SODIUM SERUM 138 mmol/L (136-145); UREA NITROGEN, BLOOD 35 mg/dL (8-21)
[2021-08-30 11:18] LABS: ALANINE AMINOTRANSFERASE 13 U/L (12-78); ALBUMIN 2.6 g/dL (3.4-4.8); ASPARTATE AMINOTRANSFERASE 21 U/L (10-37); LIPASE 63 U/L (73-393); TOTAL BILIRUBIN 0.4 mg/dL (0.0-1.0)
[2021-08-30 11:28] LABS: BACTERIA,URINE RARE /HPF (None Seen); WBC,URINE >100 /HPF (0-3); YEAST,URINE Few /HPF (None Seen)
[2021-08-30] MEDS ORDERED: cefTRIAXone 1 GM VIAL IM ONE (11:45)
[2021-08-30] MEDS ORDERED: cefTRIAXone 1 GM IVPB PREMIX 50 ML IV ONE (12:00)
[2021-08-30] MEDS ORDERED: SULF1TAB48 PO (13:00)
[2021-08-30 15:00] VITALS: BP_SYST 147
== END 2021-08-30 15:00 | disposition home or self-care (01) ==
LOC: SED 10:01
DX: N39.0 Urinary tract infection, site not specified (principal); E11.65 Type 2 diabetes mellitus with hyperglycemia; N28.1 Cyst of kidney, acquired; I10 Essential (primary) hypertension; E11.9 Type 2 diabetes mellitus without complications; Z79.899 Other long term (current) drug therapy
CPT/HCPCS: 36415; 74176; 76376; 80053; 81000; 82962; 83690; 85025; 87086; 96361; 96365; 99285; J0696; J7030